=== PATIENT | female | born 1990 | race Caucasian/White ===

== ENCOUNTER → 2016-08-29 | Outpatient (CLI) | payer BC | END | disposition home or self-care (01) | LOC: C.PAPS 11:53 | PROVIDERS: ATTEND Obstetrics & Gynecology | DX: Z01.419 Encounter for gynecological examination (general) (routine) without abnormal findings (principal) ==

== ENCOUNTER → 2017-08-31 | Outpatient (CLI) | payer BC | END | disposition home or self-care (01) | LOC: C.PAPS 16:42 | PROVIDERS: ATTEND Obstetrics & Gynecology | DX: Z01.419 Encounter for gynecological examination (general) (routine) without abnormal findings (principal) ==

== ENCOUNTER 2020-05-21 21:27 | Inpatient (IN) ==
--- NOTE | 2020-05-21 22:24 | History & Physical Report ---
Date of Service May 21, 2020 Assessment & Plan (1) : 30 y/o at 38 1/7 wga presenting after SROM VSS - first BP was 90, likely due to pain as no hx HTN and very uncomfortable currently. Will continue to monitor Fetus cat 1 Labor - nisha regularly on her own and very uncomfortable, will recheck in 2-4 hours, augment with pit if no change GBS neg Epidural PRN COVID ordered for admission, reviewed hospital policy with pt and , and they verbalized understanding History of Present Illness Chief Complaint: SROM Primary Care Provider: Gilbert Glover 30 y/o at 38 1/7 wga w/ ED 06/03/20 by LMP 08/27 c/w 1st tri US. Notes big gush of fluid at 820pm and subsequently had ctx that began worsening in frequency and intensity. +FM; denies VB PNI: None Past SHIPPER AND RECEIVING Hx: G1 2019 SAB G2 current Menarche 12, cycles q26-28d Last pap 08/2017 neg cytology, no hx abnormals Denies hx STI Allergies Allergy/AdvReac Type Severity Reaction Status Date / Time No Known Allergies Allergy Verified 05/15/20 15:41 Home Medications Medication Instructions Recorded Confirmed Type prenat.vits,vickie,ieq-nfah-urpro 1 tab PO DAILY 04/25/19 05/15/20 History Patient History Medical History Encounter for anatomic survey Hx of varicella Missed Sprained ankle Surgical History [place] teeth removed Family History Grandfather (Paternal) Myocardial infarction Aunt Female infertility Social History Smoking Status: Never smoker Second Hand Exposure: No; Do You Dip or Chew Tobacco: No; Tobacco Cessation Education Requested by Patient: No Hx Alcohol Use: No Hx Substance Use: No Preferred Language: Slovak Communication Ability: Effective Hygiene Coordinator Required: No Beliefs That Will Affect Care: None marital status: marital status details: Drew Matainnis (31) [phone] Current Living Situation: Spouse Current Living Situation Comment: Lives with current occupational status: employed 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[employer] Other Information That Helps Us Care for You: No Feels Safe at Home: Yes Safety Concerns: Feels Safe At This Time Assistive Devices: Glasses Assistive Devices Comment: Wears glasses Physical Exam Constitutional: WD/WN, vitals as above Respiratory: normal respiratory effort; no respiratory distress and no labored breathing Genitourinary: OB Exam Abdomen: + vertex (by sutures and US) and + estimated weight (7-8) Manual OB Exam: + cervical dilation 3 cm, + cervical effacement 90%, + station -2 and + amniotic fluid (Grossly ruptured, +pooling and nitrazine) clear OB Exam Monitor Tracing: + external FHT monitor used, + external uterine monitor used (q3min) and + category I (140/mod/+accel/-decel) Results & Data ([facility]) Vital Signs (Past 12 Hours) Vital Signs Pulse BP 05/21/20 21:42 86 133/90 Laboratory Results OB Labs: Blood Type A Positive 11/11/19 Antibody Screen NEGATIVE 11/11/19 Hemoglobin 13.1 g/dL (12.0-16.0) 03/12/20 Hematocrit 38.6 % (37-47) 03/12/20 Mean Corpuscular Volume 92.5 fL (80-100) 11/11/19 Platelet Count 174 K/uL (130-400) 11/11/19 Rubella IgG Antibody Immune (Immune) 11/11/19 Rapid Plasma Reagin Nonreactive (Nonreactive) 11/11/19 Hepatitis B Surface Antigen Neg (Neg) 11/11/19 HIV (1&2) Ab and P24 Ag, 4th Gener Neg (Neg) 11/11/19 Glucose 1 Hour 50 gm Load 87 mg/dl (70-130) 03/12/20 OB Optional Labs: Chlamydia trachomatis RNA NOT DETECTED (NOT DETECTED) 11/11/19 Neisseria gonorrhoeae RNA NOT DETECTED (NOT DETECTED) 11/11/19 declines all genetic testing (-) GBS Diagnostic Findings anterior plac Code Status & VTE Plan VTE Prophylaxis Plan VTE Prophylaxis will be ordered: Yes Coding Level of Care Code None Diagnoses Z34.90
[2020-05-21 22:26] LABS: Hematocrit (blood only) 38.3 % (37-47); Hemoglobin 13.4 g/dL (12.0-16.0); Mean Corpuscular Hemoglobin 32.8 pg (25-34); Mean Corpuscular Volume 93.6 fL (80-100); Mean Platelet Volume 12.3 fL (7.4-10.4); Platelet Count 132 K/uL (130-400); RDW Coefficient of Variation 13.4 % (11.5-14.5); RDW Standard Deviation 46.3 fL (36.4-46.3); Red Blood Count 4.09 M/uL (4.2-5.4); White Blood Count 12.98 K/uL (4.8-10.8)
[2020-05-21] MEDS ORDERED: BUPIVACAINE 0.25% 30 ML VIAL ONE (22:49)
[2020-05-21] MEDS ORDERED: ePHEDrine sulfate 50 MG/ML AMP ONE (22:49)
[2020-05-21] MEDS ORDERED: SODIUM CHLORIDE 0.9% INJ 10 ML VIAL ONE (22:49)
[2020-05-21] MEDS ORDERED: fentaNYL 2MCG/ML ROPIVACAINE 1.25MG/ML 100 ML BAG EPI ONE (22:50)
[2020-05-21] MEDS ORDERED: fentaNYL citrate 100 MCG/2 ML VIAL ONE (22:50)
[2020-05-21] MEDS: LACTATED RINGER'S 1,000 ML IV PRN ×2 (22:53→23:52)
[2020-05-21] MEDS: CALCIUM CARBONATE 500 MG CHEWABLE TAB PO PRN (22:57)
--- NOTE | 2020-05-21 23:00 | Anesthesiology Consultation ---
Date of Service May 21, 2020 Assessment & Plan (1) Encounter for pre-operative examination: Chart Review Chart Review: Acceptable Risk for Labor Epidural History Height/Weight Height: 5 ft 5 in Weight: 84.822 kg Allergies Allergy/AdvReac Type Severity Reaction Status Date / Time No Known Allergies Allergy Verified 05/15/20 15:41 Medications Home Medications Medication Instructions Recorded Confirmed Last Taken prenat.vits,vickie,brv-khei-xvspu 1 tab PO DAILY 04/25/19 05/15/20 Unknown Active Medications Generic Name Dose Route Start Last Admin Trade Name Freq PRN Reason Stop Dose Admin Calcium Carbonate 1,500 mg 05/21/20 22:33 05/21/20 22:57 Calcium Carbonate 500 Mg Chewable Tab PO 06/20/20 22:32 1,500 mg Q4 PRN Administration Indigestion Past Medical History Medical History Encounter for anatomic survey Hx of varicella Missed Sprained ankle Past Family History Family History Grandfather (Paternal) Myocardial infarction Aunt Female infertility Past Surgical History Surgical History [place] teeth removed Social History Smoking Status: Never smoker Do You Dip or Chew Tobacco: No Hx Alcohol Use: No Hx Substance Use: No substance use type: does not use Physical Exam Vital Signs Last Vital Signs Temp 36.9 C 05/21/20 21:46 Pulse 82 05/21/20 22:54 Resp 18 05/21/20 21:46 BP 128/91 05/21/20 22:54 Testing Laboratory Results 05/21/20 22:16
[2020-05-21] MEDS ORDERED: ONDANSETRON INJ 2 MG/ML 2 ML VIAL IV PRN (23:24)
[2020-05-21] MEDS ORDERED: NALOXONE HCL 0.4 MG/1 ML VIAL/CARP IV PRN (23:24)
[2020-05-21] MEDS ORDERED: ePHEDrine sulfate 50 MG/ML AMP IV PRN (23:24)
[2020-05-21] MEDS ORDERED: fentaNYL 2MCG/ML ROPIVACAINE 1.25MG/ML 100 ML BAG EPI PRN (23:24)
[2020-05-21] MEDS ORDERED: NALOXONE HCL 1 MG in SODIUM CHLORIDE 0.9% 1000ML 1,000 ML IV PRN (23:24)
--- NOTE | 2020-05-22 01:54 | Labor Progress Brief Note ---
Date of Service May 22, 2020 Subjective Comfortable w/ epidural Assessment & Plan (1) : 30 y/o at 38 2/7 wga presenting after SROM VSS - BPs settled once pain was more under control Fetus cat 1 Labor - now complete, will get table set up and begin pushing GBS neg Epidural in place COVID neg Admission and Anticipated Discharge Date Admission Date: May 21, 2020 Physical Exam Constitutional: WD/WN, vitals as above Respiratory: normal respiratory effort; no respiratory distress and no labored breathing Genitourinary: Manual OB Exam: + cervical dilation 10 cm, + cervical effacement 100% and + station + 1 OB Exam Monitor Tracing: + external FHT monitor used, + external uterine monitor used (q4min) and + category I (140/mod/+accel/+ early decel) Results & Data ([facility]) Vital Signs (Past 12 Hours) Vital Signs Temp Pulse Resp BP Pulse Ox 05/22/20 01:50 88 98 05/22/20 01:45 98 H 98 05/22/20 01:40 90 98 05/22/20 01:39 92 H 136/65 05/22/20 01:35 90 98 05/22/20 01:30 71 18 97 05/22/20 01:25 69 98 05/22/20 01:24 76 134/74 05/22/20 01:19 76 96 05/22/20 01:14 73 99 05/22/20 01:10 82 134/63 05/22/20 01:09 82 98 05/22/20 01:04 87 98 05/22/20 01:00 18 05/22/20 00:59 77 98 05/22/20 00:55 62 99/51 L 05/22/20 00:54 73 98 05/22/20 00:49 73 97 05/22/20 00:44 72 97 05/22/20 00:39 69 96/53 L 97 05/22/20 00:34 70 97 05/22/20 00:30 18 05/22/20 00:29 79 98 05/22/20 00:25 81 100/59 L 05/22/20 00:24 70 98 05/22/20 00:19 76 98 05/22/20 00:18 98.1 F 05/22/20 00:14 74 99 05/22/20 00:09 90 118/56 L 99 05/22/20 00:04 68 99 05/22/20 00:00 18 05/21/20 23:59 85 99 05/21/20 23:54 88 96 05/21/20 23:53 80 118/56 L 05/21/20 23:50 18 05/21/20 23:49 74 99 05/21/20 23:45 18 05/21/20 23:44 91 H 97 05/21/20 23:43 82 104/57 L 05/21/20 23:40 18 05/21/20 23:39 89 98 05/21/20 23:37 88 107/57 L 05/21/20 23:36 90 97/58 L 05/21/20 23:35 18 05/21/20 23:34 81 98 05/21/20 23:33 134 H 107/55 L 05/21/20 23:31 83 105/55 L 05/21/20 23:30 18 05/21/20 23:29 84 106/56 L 98 05/21/20 23:27 82 112/59 L 05/21/20 23:25 72 18 111/59 L 05/21/20 23:24 74 98 05/21/20 23:23 81 115/60 05/21/20 23:21 74 124/66 05/21/20 23:20 18 05/21/20 23:19 74 139/78 98 05/21/20 23:14 96 H 99 05/21/20 23:09 108 H 98 05/21/20 23:04 91 H 98 05/21/20 22:54 82 128/91 05/21/20 22:32 93 H 163/88 H 05/21/20 22:25 94 H 141/91 H 05/21/20 21:46 98.4 F 86 18 133/90 05/21/20 21:42 98.4 F 86 18 133/90 Coding Level of Care Code None Diagnoses Z34.90
[2020-05-22] MEDS ORDERED: ERYTHROMYCIN OP OINT 1 GM PKT ONE (01:59)
[2020-05-22] MEDS: CALCIUM CARBONATE 500 MG CHEWABLE TAB PO PRN (02:48)
[2020-05-22] MEDS ORDERED: MINERAL OIL 30 ML UDC ONE (03:11)
[2020-05-22] MEDS: OXYTOCIN 30 UNITS/500 ML BAG IV PRN ×2 (04:56→05:51)
--- NOTE | 2020-05-22 05:51 | Delivery Summary ---
Vaginal Delivery Summary Date of Service May 22, 2020 Vaginal Delivery Summary [facility] PREOPERATIVE DIAGNOSIS: 1. Single intrauterine at 38 2/7 wga 2. Spontaneous rupture of membranes 3. Labor POSTOPERATIVE DIAGNOSIS: 1. Single intrauterine at 38 2/7 wga 2. Spontaneous rupture of membranes 3. Labor 4. Delivered PROCEDURE: 1. Normal spontaneous vaginal delivery. SURGEON: Agnes Daly MD ANESTHESIA: Epidural. ESTIMATED BLOOD LOSS: 300 mL FLUIDS: Continuous LR. URINE OUTPUT: None. COMPLICATIONS: None. CONDITION: Stable. INDICATIONS: 30 y/o at 38 2/7 wga w/ ED 06/03/20 by LMP 08/27 c/w 1st tri US presented last evening after spontaneous rupture of membranes. Contractions began soon after and she presented at 3cm. She continued to contract and progress without augmentation. She received an epidural for pain control. She then progressed to complete and desired to push. FINDINGS: A viable female infant with Apgars of 8 and 9 at 1 and 5 minutes respectively, weight pending SPECIMEN: Cord blood OPERATIVE REPORT: The patient progressed to 10 cm, 100% effaced and +2 station, pushed over intact perineum with anesthesia to deliver a viable female , Apgars as above. Head of delivered in PRABHA position. Loose nuchal cord was present and easily delivered through. Body and shoulders were delivered without difficulty. was delivered to maternal abdomen and nursing staff. Delayed cord clamping was performed for 60 seconds. Cord was clamped and cut. Cord blood was obtained. Placenta delivered spontaneously intact with 3-vessel cord. IV oxytocin and fundal massage were given for excellent hemostasis. Vagina, cervix, perineum, and placenta were inspected. A left superior labial laceration that extended slightly into the vagina was noted and repaired in the usual fashion using 4-0 vicryl. Sponge and needle counts correct x2. No sponges were left behind. Mother and stable in immediate period. [facility] Vaginal Delivery Charge Vaginal Delivery Codes: 63432 global code for the antepartum, delivery, and post- Delivery Type Details: [facility]
[2020-05-22] MEDS ORDERED: SUPERCREAM 0.870% 15 GM JAR EXT PRN (06:05)
[2020-05-22] MEDS ORDERED: BENZOCAINE 20% AER SPR 82.5 GM CAN EXT PRN (06:05)
[2020-05-22] MEDS ORDERED: HYDROCORTISONE ACETATE 25 MG SUPP PR PRN (06:05)
[2020-05-22] MEDS ORDERED: bisacodyL 10 MG SUPP PR PRN (06:05)
[2020-05-22] MEDS ORDERED: DIPHTHERIA/TETANUS/PERTUSSIS 0.5 ML SYR/VIAL IM ONE (06:05)
[2020-05-22] MEDS ORDERED: OXYTOCIN 30 UNITS/500 ML BAG IV PRN (06:05)
[2020-05-22] MEDS ORDERED: ACETAMINOPHEN 325 MG TAB PO PRN (06:05)
--- NOTE | 2020-05-22 08:02 | Anesthesia Procedure Note ---
Date of Service May 22, 2020 Anesthesia Post Epidural Note Vital Signs Vital Signs: Temp Pulse Resp BP Pulse Ox 100.2 F H 90 20 121/56 L 97 05/22/20 07:21 05/22/20 07:39 05/22/20 07:21 05/22/20 07:39 05/22/20 07:25 Pain Intensity Abdomen: Pain Intensity: 2 Notes Mental Status: alert / awake / arousable and participated in evaluation Nausea / Vomiting: adequately controlled Pain: adequately controlled Airway Patency, RR, SpO2: stable & adequate BP & HR: stable & adequate Hydration State: stable & adequate Neuraxial Anesthesia: was administered and sensory block is resolving Anesthetic Complications: no major complications apparent and Pt Satisfied with anesthetic care Epidural: Removed without complications and With tip intact
[2020-05-22] MEDS: DOCUSATE SODIUM 100 MG CAP PO SCH ×2 (09:34→21:11)
[2020-05-22] MEDS: PRENATAL VITAMIN 1 TAB PO SCH (09:34)
[2020-05-22] MEDS: IBUPROFEN 600 MG TAB PO PRN (23:23)
[2020-05-23] MEDS: IBUPROFEN 600 MG TAB PO PRN ×2 (03:26→13:15)
--- NOTE | 2020-05-23 06:57 | Obstetrical Progress Note ---
Date of Service <Rafael Mason MD - Last Filed: 05/23/20 07:45> May 23, 2020 Assessment & Plan <Rafael Mason MD - Last Filed: 05/23/20 07:45> (1) : A/P: Kaylie Silverman is a 30 y/o female on PPD#1 following at 38+2 weeks. * Patient feels well today; eating well, voiding well, ambulating well * Pain well-controlled with ibuprofen 600mg q4h prn * PNL: Rh pos, RI, GBS neg, COVID neg * Routine care: OOB, ambulation, diet progression as tolerated * After discharge, will have six-week follow-up with Dr. Daly Subjective <Rafael Mason MD - Last Filed: 05/23/20 07:45> Kaylie Silverman is a 30 y/o female on PPD#1 following at 38+2 weeks. She reports feeling well overall this morning. Mild abdominal cramping and 3/10 pain well managed on analgesics. Voiding well. Tolerating meals overnight without difficulty. Patient has been able to ambulate some. Has persistent lochia with some improvement this morning. Currently . Physical Exam <Rafael Mason MD - Last Filed: 05/23/20 07:45> General: alert, oriented, no acute distress Cardiac: regular rate and rhythm, no murmurs appreciated Respiratory: lungs clear to auscultation bilaterally a/p, no wheezes/ rales/rhonchi, no increased work of breathing, symmetrical chest rise, no respiratory distress Abdomen: soft, minimally tender, nondistended, bowel sounds present Uterus: uterine fundus firm, palpable 2 cm below umbilicus Lower extremities: no lower extremity edema or swelling, no deep calf pain, Salas's negative bilaterally Results & Data ([facility]) <Rafael Mason MD - Last Filed: 05/23/20 07:45> Vital Signs (Past 12 Hours) Vital Signs Temp Pulse Resp BP Pulse Ox 05/23/20 03:20 36.8 C 75 16 123/77 05/22/20 23:10 37.2 C 76 16 129/86 96 05/22/20 19:30 37.3 C 90 16 120/78 95 <Lucia Whitten MD, FACOG - Last Filed: 05/23/20 08:31> Co-Signing Physician Notes Resident Physician Supervision Note: I was present with Dr. Mason during the history and exam. I discussed the case with the resident and agree with the findings and plan as documented in the note. Any exceptions or clarifications are listed here: doing well, routine pp care. rh pos, ri. may desire d/c later today, will see how her day goes. Documented By: Lucia Whitten MD, FACOG Resident Activity Tracking <Rafael Mason MD - Last Filed: 05/23/20 07:45> Resident Involvement: Resident Care Provided Care Provided: OB Delivery
[2020-05-23] MEDS: DOCUSATE SODIUM 100 MG CAP PO SCH (08:48)
[2020-05-23] MEDS: PRENATAL VITAMIN 1 TAB PO SCH (08:48)
[2020-05-23] MEDS ORDERED: bisacodyL 5 MG TABEC PO SCH (20:00)
== END 2020-05-23 19:30 | disposition home or self-care (01) | DRG 807 ==
LOC: OPB 21:27 → 4S1 21:29 → 4S2 05-22 09:15

== ENCOUNTER 2022-02-26 08:17 | Inpatient (IN) ==
[2022-02-26] MEDS ORDERED: OXYTOCIN 30 UNITS/500 ML BAG IV PRN ×2 (08:49→13:02)
[2022-02-26] MEDS ORDERED: LACTATED RINGER'S 1,000 ML IV PRN (08:49)
[2022-02-26] MEDS ORDERED: LIDOCAINE 1% LOCAL 20 ML VIAL INFIL PRN (08:49)
--- NOTE | 2022-02-26 08:53 | History & Physical Report ---
Date of Service February 26, 2022 Assessment & Plan (1) Postmaturity , 40-42 weeks gestation: (2) Normal labor: Plan admit for labor. gbs neg. check covid test. epidural as desires. Then arom as indicated. anticipate . History of Present Illness Chief Complaint: contractions Primary Care Provider: NO PCP Patient is a 31yowf with iup at 40 5/7 weeks who presents to labor and delivery complaining of increasing contractions starting this am. Notes feels wet, but no gushing. no vb. has been uncomplicated and Delivery Plans has not had covid. Rubella non-immune *needs PP MMR OB Labs: Blood Type A Positive 07/16/21 Antibody Screen NEGATIVE 07/16/21 Hemoglobin 12.6 g/dl (12.0-16.0) 12/02/21 Hematocrit 37.4 % (34.1-44.9) 12/02/21 Mean Corpuscular Volume 89.1 fL (80-100) 07/16/21 Platelet Count 202 K/uL (130-400) 07/16/21 Rubella IgG Antibody Non Immune (Immune) L 07/16/21 Rapid Plasma Reagin Nonreactive (Nonreactive) 07/16/21 Hepatitis B Surface Antigen Neg (Neg) 07/16/21 Hepatitis C Antibody Neg (Neg) 07/16/21 HIV (1&2) Ab and P24 Ag, 4th Gener Neg (Neg) 07/16/21 Glucose 1 Hour 50 gm Load 126 mg/dl (70-130) 12/02/21 OB Optional Labs: Chlamydia trachomatis RNA NOT DETECTED (NOT DETECTED) 11/11/19 Neisseria gonorrhoeae RNA NOT DETECTED (NOT DETECTED) 11/11/19 Labs Reviewed: declines cf/sma--[facility] declines genetics--[facility] declines msafp--mln gbs neg Allergies Allergy/AdvReac Type Severity Reaction Status Date / Time No Known Allergies Allergy Verified 02/21/22 14:24 Home Medications Medication Instructions Recorded Confirmed Type prenat.vits,vickie,idw-lwrb-cmfhm 1 tab PO DAILY 07/15/21 02/21/22 History Patient History Medical History Encounter for anatomic survey Hx of varicella Missed Sprained ankle Surgical History [place] teeth removed Family History Grandfather (Paternal) Myocardial infarction Aunt Female infertility Father Skin cancer Leukemia Denies family history of Ovarian cancer Breast cancer Colorectal cancer Social History Smoking Status: Never smoker Second Hand Exposure: No; Hx Alcohol Use: No Hx Substance Use: No Preferred Language: Greek Communication Ability: Effective Visual Impairment: No Limitations Hearing Ability: Normal Grease And Tallow Pumper Required: No Beliefs That Will Affect Care: None marital status: marital status details: Drew Chapa (33) [phone] Current Living Situation: Spouse, Parent and Family Current Living Situation Comment: Lives with spouse, child, parents, dog current occupational status: employed current occupation: [employer] Feels Safe at Home: Yes Assistive Devices: None OB History Past Pregnancies Del. Date GA wks Lbr Lgth wt Sex Type del Anes Place Del Prov ? Comment 05/06/19 Aborted-Spontaneous 05/22/20 38 6lb 6.6oz F Epi dural [facility] Dr. Daly No OFFICE DIRECTOR History noncontributory Physical Exam Constitutional: WD/WN, vitals as above Gastrointestinal (Abdomen): soft, nt, gravid Psychiatric: A+Ox3, euthymic affect Genitourinary: sse-mucous, no pooling cx--6/100/-2 toco--q4min efm--130s wtih mod variabiltiy, accels to 160s, no decels Results & Data ([facility]) Vital Signs (Past 12 Hours) Vital Signs Temp Pulse Resp BP 02/26/22 08:32 36.9 C 100 H 20 137/88 Coding Level of Care Code None Diagnoses Postmaturity , 40-42 weeks gestation O48.0 Normal labor O80; Z37.9
[2022-02-26] MEDS ORDERED: BUPIVACAINE 0.25% 30 ML VIAL ONE (09:11)
[2022-02-26] MEDS ORDERED: ePHEDrine sulfate 50 MG/ML AMP ONE (09:11)
[2022-02-26] MEDS ORDERED: SODIUM CHLORIDE 0.9% INJ 10 ML VIAL ONE (09:11)
[2022-02-26] MEDS ORDERED: fentaNYL citrate 100 MCG/2 ML VIAL ONE (09:11)
[2022-02-26] MEDS ORDERED: LIDOCAINE 2%/EPINEPHRINE 1:200,000 20 ML SDV ONE (09:12)
[2022-02-26] MEDS ORDERED: fentaNYL 2MCG/ML ROPIVACAINE 1.25MG/ML 100 ML BAG EPI ONE (09:12)
[2022-02-26 09:29] LABS: Hematocrit (blood only) 37.6 % (34.1-44.9); Mean Corpuscular Hemoglobin 31.8 pg (25.0-34.0); Mean Corpuscular Hgb Conc 34.6 g/dL (32.0-36.0); Mean Corpuscular Volume 91.9 fL (80.0-100.0); Mean Platelet Volume 12.2 fL (9.4-12.3); Platelet Count 129 K/uL (130-400); RDW Coefficient of Variation 13.4 % (11.5-14.5); RDW Standard Deviation 45.1 fL (36.4-46.3); Red Blood Count 4.09 M/uL (3.93-5.22); White Blood Count 11.83 K/ul (4.8-10.8)
[2022-02-26] MEDS ORDERED: NALOXONE HCL 0.4 MG/1 ML VIAL/CARP IV PRN (09:30)
[2022-02-26] MEDS ORDERED: ONDANSETRON INJ 2 MG/ML 2 ML VIAL IV PRN (09:30)
[2022-02-26] MEDS ORDERED: NALBUPHINE HCL INJ 10 MG/ML AMP IV PRN (09:30)
[2022-02-26] MEDS ORDERED: NALOXONE HCL 1 MG in SODIUM CHLORIDE 0.9% 1000ML 1,000 ML IV PRN (09:30)
[2022-02-26] MEDS ORDERED: ePHEDrine sulfate 50 MG/ML AMP IV PRN (09:30)
[2022-02-26] MEDS ORDERED: diphenhydrAMINE 50 MG/ML VIAL IV PRN (09:30)
[2022-02-26] MEDS ORDERED: fentaNYL 2MCG/ML ROPIVACAINE 1.25MG/ML 100 ML BAG EPI PRN (09:30)
--- NOTE | 2022-02-26 09:34 | Anesthesiology Consultation ---
Date of Service February 26, 2022 Assessment & Plan Chart Review Chart Review: Patient NOT seen in Pre Admission Testing and Acceptable Risk for Labor Epidural Consults Requested none ASA ASA2 Proposed Anesthesia Anesthesia Type: Labor Epidural and CSE Risk / Benefits Reviewed With: PT / POA / Parent / Guardian, Accepts Plan and Informed Consent Obtained History Height/Weight Weight: 98.883 kg Allergies Allergy/AdvReac Type Severity Reaction Status Date / Time No Known Allergies Allergy Verified 02/21/22 14:24 Medications Home Medications Medication Instructions Recorded Confirmed Last Taken prenat.vits,vickie,zgt-dgmi-qgroc 1 tab PO DAILY 07/15/21 02/21/22 Unknown NPO Date Last Intake of Fluids: 02/26/22 Time Last Intake of Fluids: 07:00 Date Last Intake of Solids: 02/26/22 Time Last Intake of Solids: 07:00 Past Medical History Medical History Encounter for anatomic survey Hx of varicella Missed Sprained ankle Exercise / Class Metabolic Activity II 4-5 Yardwork/Stairs/Walk up hill Past Family History Family History Grandfather (Paternal) Myocardial infarction Aunt Female infertility Father Skin cancer Leukemia Denies family history of Ovarian cancer Breast cancer Colorectal cancer Past Surgical History Surgical History [place] teeth removed Past Anesthesia History No Hx of Anesthesia Complications and No Family Hx of Anesthesia Complications History of PONV No Hx of PONV and No Hx of Motion Sickness Social History Smoking Status: Never smoker Hx Alcohol Use: No Hx Substance Use: No substance use type: does not use Review of Systems no chest pain or sob Physical Exam Vital Signs Last Vital Signs Temp 36.9 C 02/26/22 08:32 Pulse 80 02/26/22 09:29 Resp 20 02/26/22 08:32 BP 123/71 02/26/22 09:27 Pulse Ox 99 02/26/22 09:29 ENMT Mouth: no TMJ abnormality Thyromental Distance: > or= 3.5 Finger Breadths Mallampati Class: II Neck normal visual inspection Respiratory normal respiratory effort Auscultation: lungs clear to auscultation bilaterally Cardiovascular Rate/Rhythm: regular rate and regular rhythm Musculoskeletal Spine: normal cervical ROM Neurologic moves all extremities Psychiatric Orientation: alert and oriented x 3 Testing Laboratory Results 02/26/22 09:14
[2022-02-26] MEDS ORDERED: CALCIUM CARBONATE 500 MG CHEWABLE TAB PO PRN (11:26)
--- NOTE | 2022-02-26 11:26 | Labor Progress Brief Note ---
Date of Service February 26, 2022 Subjective comfortable Assessment & Plan (1) Normal labor: Plan continue current management, fetus category one. anticipate . Admission and Anticipated Discharge Date Admission Date: February 26, 2022 Physical Exam Physical Exam: cx--9/100/0 arom--minimal fluid toco--q2-4min efm--140s with mod variability, accels present, no decels Results & Data ([facility]) Vital Signs (Past 12 Hours) Vital Signs Temp Pulse Resp BP Pulse Ox 02/26/22 11:19 99 02/26/22 11:19 68 02/26/22 11:14 98 02/26/22 11:14 64 02/26/22 11:09 98 02/26/22 11:09 64 02/26/22 11:07 81 02/26/22 11:07 115/65 02/26/22 11:04 98 02/26/22 11:04 64 02/26/22 10:59 98 02/26/22 10:59 72 02/26/22 10:54 97 02/26/22 10:54 80 02/26/22 10:54 121/66 02/26/22 10:49 98 02/26/22 10:49 73 02/26/22 10:44 100 02/26/22 10:44 72 02/26/22 10:39 98 02/26/22 10:39 70 02/26/22 10:37 62 02/26/22 10:37 114/60 02/26/22 10:34 97 02/26/22 10:34 72 02/26/22 10:29 98 02/26/22 10:29 73 02/26/22 10:24 98 02/26/22 10:23 72 02/26/22 10:24 65 02/26/22 10:23 118/60 02/26/22 10:19 98 02/26/22 10:19 77 02/26/22 10:14 97 02/26/22 10:14 87 02/26/22 10:09 99 02/26/22 10:09 73 02/26/22 10:05 74 02/26/22 10:05 113/68 02/26/22 10:04 98 02/26/22 10:04 94 H 02/26/22 09:59 76 02/26/22 09:59 109/67 02/26/22 09:59 97 02/26/22 09:59 76 02/26/22 09:54 98 02/26/22 09:54 83 02/26/22 09:54 118/67 02/26/22 09:51 88 02/26/22 09:51 123/67 02/26/22 09:49 90 02/26/22 09:49 125/67 02/26/22 09:49 98 02/26/22 09:49 88 02/26/22 09:47 91 H 02/26/22 09:47 130/62 02/26/22 09:45 99 H 02/26/22 09:45 128/69 02/26/22 09:44 98 02/26/22 09:44 84 02/26/22 09:39 98 02/26/22 09:39 81 02/26/22 09:34 99 02/26/22 09:34 95 H 02/26/22 09:29 99 02/26/22 09:29 80 02/26/22 09:27 80 02/26/22 09:27 123/71 02/26/22 08:32 36.9 C 100 H 20 137/88 Coding Level of Care Code None Diagnoses Normal labor O80; Z37.9
[2022-02-26] MEDS ORDERED: METHYLERGONOVINE MALEATE 0.2 MG/ML AMP ONE (12:50)
--- NOTE | 2022-02-26 13:01 | Delivery Summary ---
Vaginal Delivery Summary Date of Service February 26, 2022 Vaginal Delivery Summary (with right labial laceration repair) Pre-operative Diagnosis: at 40+ weeks active labor Post-operative Diagnosis: same Procedure: epidural arom right labial laceration and repair EBL: 300cc Anesthesia: epidural Procedure: The patient presented in active labor. She got an epidural and then arom at 9cm. The patient pushed for three contractions to deliver a viable female in cathy position. The nose and mouth were bulb suctioned on the perineum and the rest of the infant was then delivered without difficulty. The baby was vigorous. The nose and mouth were again bulb suctioned and the was placed in the maternal abdomen for drying and attention. Cord was clamped and cut at one minute of life. Cord blood and segment obtained. Placenta del ivered spontaneous, intact with a three vessel cord. Cervix/sulci/rectum were intact. A right labial laceration was repaired in the normal standard fashion. Hemostasis obtained with dilute pitocin and fundal massage. Apgars were 8/9. Mother and baby doing well at the end of the delivery. [facility] Vaginal Delivery Charge Delivery Type Details: (with right labial laceration repair)
[2022-02-26] MEDS ORDERED: ACETAMINOPHEN 325 MG TAB PO PRN (13:02)
[2022-02-26] MEDS ORDERED: oxyCODONE/ACETAMINOPHEN 5mg/325mg TAB PO PRN (13:02)
[2022-02-26] MEDS ORDERED: HYDROCORTISONE ACETATE 25 MG SUPP PR PRN (13:02)
[2022-02-26] MEDS ORDERED: bisacodyL 10 MG SUPP PR PRN (13:02)
[2022-02-26] MEDS ORDERED: DIPHTHERIA/TETANUS/PERTUSSIS 0.5 ML SYR/VIAL IM ONE (13:02)
[2022-02-26] MEDS ORDERED: BENZOCAINE 20% AER SPR 82.5 GM CAN EXT PRN (13:02)
--- NOTE | 2022-02-26 13:04 | Anesthesia Procedure Note ---
Date of Service February 26, 2022 Anesthesia Post Epidural Note Vital Signs Vital Signs: Temp Pulse Resp BP Pulse Ox 36.9 C 94 H 20 106/53 L 98 02/26/22 08:32 02/26/22 13:04 02/26/22 08:32 02/26/22 12:53 02/26/22 13:04 Notes Mental Status: alert / awake / arousable and participated in evaluation Nausea / Vomiting: adequately controlled Pain: adequately controlled Airway Patency, RR, SpO2: stable & adequate BP & HR: stable & adequate Hydration State: stable & adequate Neuraxial Anesthesia: was administered and sensory block is resolving Anesthetic Complications: no major complications apparent and Pt Satisfied with anesthetic care Epidural: Removed without complications and With tip intact
[2022-02-26] MEDS ORDERED: METHYLERGONOVINE MALEATE 0.2 MG/ML AMP IM STA (13:10)
[2022-02-26] MEDS: DOCUSATE SODIUM 100 MG CAP PO SCH (21:31)
[2022-02-26] MEDS: IBUPROFEN 600 MG TAB PO PRN (21:31)
[2022-02-27] MEDS: IBUPROFEN 600 MG TAB PO PRN ×2 (04:48→12:41)
--- NOTE | 2022-02-27 06:20 | Obstetrical Progress Note ---
Date of Service <Martine Castellano DO - Last Filed: 02/27/22 07:08> February 27, 2022 Assessment & Plan <Martine Castellano DO - Last Filed: 02/27/22 07:08> (1) Status post vaginal delivery: continue OOB, ambulation, diet as tolerated <Karoline Verduzco MD, FACOG - Last Filed: 02/27/22 07:13> (1) Status post vaginal delivery: Subjective <Martine Castellano - Last Filed: 02/27/22 07:08> Kaylie is a 31 y/o female who is now PPD # 1 following spontaneous vaginal delivery at 40 5/7 weeks. Reports feeling well overall this morning. Mild abdominal cramping well managed on analgesics. Voiding. Tolerating meals overnight and able to ambulate some. Some persistent lochia with some improvement this morning. Breast feeding. Review of Systems Denies fever, chills, sweats Denies shortness of breath, difficulty breathing, chest pain, palpitations, chest pressure. Denies breast pain. Denies dysuria. Denies headache or changes in vision. Physical Exam <Martine Castellano - Last Filed: 02/27/22 07:08> General: Alert, oriented. No acute distress. Cardiac: Regular rate and rhythm, no murmurs/rubs/gallops. Respiratory: Clear to auscultation bilaterally a/p, no wheezes/rales/rhonchi. No increased work of breathing. Symmetrical chest rise. No respiratory distress. Abdomen: Soft, nontender, nondistended. Uterus: Uterine fundus firm, palpable 2 cm below umbilicus. Lower Extremities: No lower extremity edema or swelling. No deep calf pain. Results & Data ([facility]) <Martine Castellano DO - Last Filed: 02/27/22 07:08> Vital Signs (Past 12 Hours) Vital Signs Temp Pulse Resp BP Pulse Ox O2 Del Method 02/27/22 04:40 36.7 C 81 16 122/82 Room Air 02/26/22 23:40 36.7 C 78 16 129/82 Room Air 02/26/22 19:40 36.7 C 82 18 127/83 97 Room Air <Karoline Verduzco MD, FACOG - Last Filed: 02/27/22 07:13> Co-Signing Physician Notes Resident Physician Supervision Note: I interviewed and examined the patient. Discussed with Dr. Castellano and agree with findings and plan as documented in the note. Any exceptions or clarifications are listed here: Doing well. Desires d/c. Instructions given. Documented By: Karoline Verduzco MD, FACOG Resident Activity Tracking <Martine Castellano DO - Last Filed: 02/27/22 07:08> Resident Involvement: Resident Care Provided Care Provided: OB Delivery (Post )
[2022-02-27] MEDS: DOCUSATE SODIUM 100 MG CAP PO SCH (07:34)
[2022-02-27 07:41] LABS: Hematocrit (blood only) 34.4 % (34.1-44.9); Hemoglobin 11.7 g/dl (12.0-16.0); Mean Corpuscular Hemoglobin 31.4 pg (25.0-34.0); Mean Corpuscular Volume 92.2 fL (80.0-100.0); Mean Platelet Volume 11.8 fL (9.4-12.3); Platelet Count 126 K/uL (130-400); RDW Coefficient of Variation 13.3 % (11.5-14.5); RDW Standard Deviation 45.2 fL (36.4-46.3); Red Blood Count 3.73 M/uL (3.93-5.22); White Blood Count 12.21 K/ul (4.8-10.8)
[2022-02-27] MEDS ORDERED: PRENATAL VITAMIN 1 TAB PO SCH (08:00)
[2022-02-27] MEDS ORDERED: bisacodyL 5 MG TABEC PO SCH (20:00)
== END 2022-02-27 14:20 | disposition home or self-care (01) | DRG 807 ==
LOC: OPB 08:17 → 4S1 08:22 → 4E2 15:50
DX: Z37.0 Single live birth; O70.0 First degree perineal laceration during delivery; O48.0 Post-term pregnancy; Z3A.40 40 weeks gestation of pregnancy